=== PATIENT | female | born 1990 | race Caucasian/White ===

== ENCOUNTER → 2018-12-30 | Outpatient (CLI) | payer BC ==
--- NOTE | 2018-12-30 16:26 | MRI ---
EXAM DESCRIPTION: Brain w/o Contrast: MRI. CLINICAL HISTORY: HEADACHE COMPARISON: None. TECHNIQUE: Multiplanar, high-field MRI unit, multiple diffusion sequences, multiple conventional sequences without contrast. FINDINGS: Normal FLAIR and T2-weighted signal in the periventricular white matter and chaves/sub-cortical white matter junctions of the cerebral hemispheres. . No hemorrhage, no cerebral edema, no mass-effect. Normal signal in the bilateral basal ganglia. Normal signal in the brainstem and cerebellar hemispheres. No hemorrhage, no parenchymal edema, no mass-effect. Concordance of the diffusion and non-diffusion sequences with no diffusion restriction. Cortical sulci, ventricles, and other CSF spaces, and the subdural spaces are normally configured. Small extra-axial collection of CSF abutting the paraspinal right occipital lobe above the ventricles is interpreted to be a normal variant. No effacement or displacement. No midline shift. No extra-axial hemorrhage. Normal flow signal void in the major vessels of the [place], and the venous sinuses. IACs are symmetric bilaterally. No fluid in the bilateral mastoid air cells. No mass effect in the bilateral cerebellopontine angles. Pituitary gland occupies most of the sella. Base of the cerebellar tonsils is at the level of the foramen magnum. Almost 1 cm mixed signal object in the superior posterior right ethmoid air cells.. The bony calvarium is intact. IMPRESSION: 1. Normal MRI scan of the brain without gadolinium IV contrast. No hemorrhage, no mass effect, no midline shift. No abnormal fluid collection. 2. Normal noncontrast MRI diffusion study with no evidence of acute or subacute significant ischemia or infarction. 3. Follow-up versus mucosal retention cyst more likely then mass in the superior posterior right ethmoid air cells. Correlate with clinical findings. Electronically signed by: Ari Byrne MD 12/30/2018 4:24 PM CDT
== END ==
LOC: MRI 13:03
PROVIDERS: ATTEND Family Medicine
DX: R51 Headache (principal); J34.9 Unspecified disorder of nose and nasal sinuses